=== PATIENT | female | born 1960 | race Caucasian/White ===

== ENCOUNTER → 2021-12-24 | Outpatient (CLI) | payer OTHER ==
[~2021-12-24] MED LIST: ASP325T PO; CITA20TA4 PO; ESTR1.256 PO; LORA0.5T PO
--- NOTE | 2021-12-24 13:47 | Diagnostic Imaging Report ---
INDICATION: Routine screening. COMPARISON: 12/10/2020 and 10/18/2019. TECHNIQUE: 2D and 3D bilateral screening mammography was performed with CAD. FINDINGS: Scattered fibroglandular densities are identified bilaterally. Benign nodules in the outer left breast are stable. No spiculated mass or malignant-appearing microcalcifications are seen. The axillae are unremarkable. IMPRESSION: No mammographic features suspicious for malignancy are identified. ACR BI-RADS Category 2: Benign findings. Result letter will be mailed to the patient. Note: At least 10% of breast cancer is not imaged by mammography. Dictated by: Dictated on workstation # [id number]
== END ==
LOC: RAD 11:15
PROVIDERS: ATTEND Nurse Practitioner Family
DX: Z12.31 Encounter for screening mammogram for malignant neoplasm of breast (principal)
CPT/HCPCS: 77063; 77067

== ENCOUNTER 2022-10-07 05:56 | Outpatient (CLI) | payer OTHER ==
[~2022-10-07] VITALS: Ht 160 cm; Wt 65.8 kg
[2022-10-07] MEDS ORDERED: ESTR0.9T PO (09:12)
[2022-10-07] MEDS ORDERED: TERB250T88 PO (09:12)
== END 2022-10-07 09:46 | disposition home or self-care (01) ==
LOC: PREOP 05:56
PROVIDERS: ATTEND Surgery
DX: Z01.818 Encounter for other preprocedural examination (principal)

== ENCOUNTER 2022-10-14 10:17 | Day surgery (SDC) | payer OTHER ==
[~2022-10-14] VITALS: Ht 160 cm; Wt 65.8 kg
[~2022-10-14 10:17] MED LIST changes: +ESTR0.9T PO; +TERB250T88 PO
[2022-10-14] MEDS ORDERED: LACTATED RINGERS 1,000 ML IV STA (10:26)
[2022-10-14] MEDS ORDERED: LIDOCAINE JELLY 2% 6 ML SYRINGE MM PRN (10:30)
[2022-10-14 10:45] VITALS: BP 132/79
--- NOTE | 2022-10-14 11:16 | Progress Note-Pre Operative ---
Pre-Operative Progress Note Date of Available H&P: Oct 14, 2022 Date H&P Reviewed: Oct 14, 2022 Time H&P Reviewed: 11:00 History & Physical: No changes noted Pre-Operative Diagnosis: screening o LEE MAXWELL MD Oct 14, 2022 11:16
--- NOTE | 2022-10-14 11:17 | Discharge Inst-Surgical ---
D/C Lap Instructions-ALISSA Follow Up Activity as tolerated High Fiber Diet 25g or more per day Avoid Alcohol, Caffeine, Spicy [place] and Acid foods. Drink 64 fluid oz or more of fluids per day. Symptoms to Report: Fever over 101 degree F, Nausea/Vomiting If any problems/questions: Contact your physician or go to Emergency Room LEE MAXWELL MD Oct 14, 2022 11:17
[2022-10-14] MEDS ORDERED: ONDANSETRON 4 MG/2 ML (SDV) Z0FRAN IVP PRN (11:30)
[2022-10-14] MEDS ORDERED: ONDANSETRON 4 MG (ZOFRAN) ORAL DISSOLVE TAB PO PRN (11:30)
[2022-10-14] MEDS ORDERED: LIDOCAINE JELLY 2% 6 ML SYRINGE ONE (11:54)
[2022-10-14] MEDS ORDERED: PROPOFOL INJECTION 50 ML IV ONE (12:04)
[2022-10-14] MEDS ORDERED: MIDAZOLAM 2 MG/2 ML (VERSED) VIAL ONE (12:04)
[2022-10-14] MEDS ORDERED: proPOfol 200 MG/20 ML (DIPRIVAN) VIAL IV ONE (12:42)
[2022-10-14 13:00] VITALS: BP_SYST 104; BP_DIAS 104; BP_DIAS 61
--- NOTE | 2022-10-14 13:01 | Anesthesia-General Post-Op ---
MAC Patient Condition Mental Status/LOC: Same as Preop Cardiovascular: Satisfactory Nausea/Vomiting: Absent Respiratory: Satisfactory Pain: Controlled Complications: Absent Post Op Complications Complications None Follow Up Care/Instructions Patient Instructions None needed. Anesthesiology Discharge Order Discharge Order Patient is doing well, no complaints, stable vital signs, no apparent adverse anesthesia problems. No complications reported per nursing. FLORECITA LAO DO Oct 14, 2022 13:01
[2022-10-14 13:05] VITALS: BP 99/69
[2022-10-14 13:10] VITALS: BP 110/67
[2022-10-14 13:15] VITALS: BP 110/67
--- NOTE | 2022-10-14 13:15 | Progress Note-Post Operative ---
Post-Operative Progess Note Surgeon (s)/Sorting Grapple Operator (s) Surgeon LEE MAXWELL MD Sorting Grapple Operator: none Pre-Operative Diagnosis screening colo Post-Operative Diagnosis sessile polyp cecum(>2cm) Procedure & Operative Findings Date of Procedure 10/14/22 Procedure Performed/Findings colonoscopy with bx. Anesthesia Type mac Estimated Blood Loss Estimated blood loss (mL): minimal Specimens/Packing Specimens Removed cecal polyp LEE MAXWELL MD Oct 14, 2022 13:15
[2022-10-14 13:35] VITALS: BP 110/67
--- NOTE | 2022-10-14 20:31 | OPERATIVE REPORT ---
DATE OF SERVICE: 10/14/2022 ATTENDING PRIMARY CARE PHYSICIAN: Britt Sauceda MD PREOPERATIVE DIAGNOSIS: Screening colonoscopy. POSTOPERATIVE DIAGNOSIS: Sessile cecal polyp, greater than 1 cm in size. PROCEDURE: Colonoscopy with biopsy. SURGEON: Lee Maxwell MD ANESTHESIA: Monitored anesthesia care. ESTIMATED BLOOD LOSS: Minimal. FINDINGS: Sessile cecal polyp, greater than 1 cm in size. DISPOSITION: The patient tolerated the procedure well. INDICATIONS: The patient is a 62-year-old female referred over to us for screening colonoscopy. Her last one was in 2012, which was normal. She states she is otherwise doing well. Does not report any red blood per rectum, nor any dark tarry stools. She does not know of any family history for she is adopted. DESCRIPTION OF PROCEDURE: The patient was brought to the endoscopy suite and laid in the left lateral decubitus position. After adequate IV pain and sedative medications and monitored anesthesia care, a digital rectal examination was performed. No significant hemorrhoids identified. Normal sphincter tone was felt and there were no palpable masses. The endoscope was then intubated into the anus, rectum and gently insufflated. The endoscope was then advanced through the valves of Abbott of the rectum with no polyps or neoplasms identified. The endoscope was then advanced through the sigmoid colon where no diverticulosis identified. The endoscope was then advanced through the remainder of the descending, transverse and ascending colon to the cecum. At the level of the cecum, a sessile polyp greater than 1 cm in size was identified. This was excised in a piecemeal fashion using biopsy forceps and electrocautery; however, not 100% of the polyp could be removed. Good hemostasis was observed and the specimens were sent to pathology. The endoscope was then slowly withdrawn, taking a second look and suctioning of residual air with no additional findings. The patient tolerated the procedure well. We will await the biopsy results and gave her the option of continued close monitoring if the lesion is benign versus formal resection versus possible referral to Gastroenterology who does do a submucosal injections and a total excision of the sessile polyps endoscopically. Job ID: [id number] DocumentID: [id number] Dictated Date: 10/14/2022 13:03:33 Automatic Splicing Machine Operator Date: 10/14/2022 20:29:00 Dictated By: LEE MAXWELL MD
== END 2022-10-14 13:50 | disposition home or self-care (01) ==
LOC: ENDO 10:17
PROVIDERS: ATTEND Surgery
DX: Z12.11 Encounter for screening for malignant neoplasm of colon (principal); D12.0 Benign neoplasm of cecum
CPT/HCPCS: 88305

== ENCOUNTER → 2022-12-28 | Outpatient (CLI) | payer OTHER ==
--- NOTE | 2022-12-28 12:23 | Diagnostic Imaging Report ---
INDICATION: Routine screening. COMPARISON: 12/24/2021 and 12/10/2020. TECHNIQUE: 2D and 3D bilateral screening mammography was performed with CAD. FINDINGS: Scattered fibroglandular densities are identified bilaterally. The benign nodule in the outer left breast is stable. No new mass or malignant-appearing microcalcifications are seen. The axillae are unremarkable. IMPRESSION: No mammographic features suspicious for malignancy are identified. ACR BI-RADS Category 2: Benign findings. Result letter will be mailed to the patient. Note: At least 10% of breast cancer is not imaged by mammography. Dictated by: Dictated on workstation # [id number]
== END ==
LOC: RAD 11:15
PROVIDERS: ATTEND Family Medicine
DX: Z12.31 Encounter for screening mammogram for malignant neoplasm of breast (principal)
CPT/HCPCS: 77063; 77067